=== PATIENT | male | born 1985 | race Caucasian/White ===

== ENCOUNTER 2024-03-11 01:56 | Day surgery (SDC) | payer BC, SELFPAY ==
[2024-02-28 15:02] VITALS: BMI 31.8
--- NOTE | 2024-02-28 15:09 | PC.NURSE ---
Report to the Outpatient Waiting Room, entrance under the green pavilion located off [facility], at time _1000_ on date _[id number]_. Planned Procedure Time: _1200_. Time changes happen often and if your time is changed the preop area will call you the afternoon before. - You and your visitor will be asked to self-screen and do not enter if you have any COVID symptoms. - A mask is optional within the hospital at this time. Patients may have clear liquids (water, carbonated beverages, clear teas, apple juice) until 3 hours prior to surgery with a maximum of 20 ounces. - No food from midnight until time of surgery Take the following medications with a SIP of water the morning of surgery: ___None DO NOT STOP ANY OF YOUR OTHER PRESCRIPTION MEDICATIONS PRIOR TO SURGERY ?EXCEPT THE FOLLOWING Medications to discontinue per physician ____None Date to take last dose Please no make-up, nail lithuanian, hairspray, perfume, deodorant, or body powder the day of surgery. No jewelry (including any body piercings) or valuables the day of surgery, leave them at home. Please take a shower or bath the night before, or the morning of, surgery with an antibacterial soap. Wear comfortable, loose fitting clothing. - Jewelry must be removed prior to entering the operating room. Rings and piercings that are not removed may be cut off. - The hospital will not accept responsibility for valuables. - Please leave all valuables, including medications, at home the day of surgery. If you are going home after surgery, a licensed combine driver must drive you home. - NO public transportation without another adult if you receive anesthesia. - We recommend that an adult stay with you for 24 hours following discharge. - We also recommend that you do not drive, make important decision, drink alcoholic beverages, or take any drugs that were not prescribed by your health care provider for at least 24 hours after your discharge time. Follow any additional instructions given to you from your surgeon. If you or anyone in your household have experienced Covid symptoms in the past week, please notify your surgeon or the nurse liaison at the phone number below for possible testing. Telephone instructions given to _Cristian__and asked if any additional questions and then verbalized understanding. Patient advised to call surgeon office or pre surgery nurse liaison [phone] if any additional questions.
[2024-03-11] VITALS (9 sets, daily range): BP systolic 117–138; BP diastolic 57–82; PULSE 49–80; RESP 14–16; TEMP 36.9; O2SAT 93–100
[2024-03-11] MEDS: ACETAMINOPHEN 500 MG TABLET 1000 MG PO (10:35)
[2024-03-11] MEDS: LACTATED RINGERS 1,000 ML 30 ML IV CONT ×2 (10:35→13:37)
[2024-03-11] MEDS: KETOROLAC 15 MG/ML VIAL (*BKC) IV PUSH (10:35)
--- NOTE | 2024-03-11 11:23 | WPDANESEPPF ---
Anes - Initial Pre Proc Eval Procedure: Operation Date: 03/11/24 12:00 Proposed Procedures p Open Umbilical Hernia Repair, Possible Mesh - Carmina Oliveros MD Date/Time: 03/11/24 11:23 Surgeon: Carmina Oliveros MD Pre Op Diagnosis: 2 cm umbilical hernia Patient Data Age: 38 Gender: M Height: 1.75 m Weight: 99.7 kg Last Vital Signs Temp 98.5 F 03/11/24 10:35 Pulse 62 03/11/24 10:35 Resp 14 03/11/24 10:35 BP 122/82 03/11/24 10:35 Pulse Ox 99 03/11/24 10:35 O2 Del Method Room Air 03/11/24 10:35 Allergies Allergy/AdvReac Type Severity Reaction Status Date / Time amoxicillin Allergy Unknown Verified 03/11/24 10:45 Home Medications Medication Instructions Recorded Confirmed Type levocetirizine 5 mg tablet (Xyzal) 5 mg PO DAILY 02/20/24 02/28/24 History Patient hx anesthesia problems: none Family hx anesthesia problems: none Results Review: All pre-operative results and documents have been reviewed as part of the pre-operative evaluation. [facility] Surgical History Surgical History H/O hernia repair History of ankle surgery Hx of hand surgery S/P laparoscopic appendectomy Family History Family History Other Acute myocardial infarction Heart disease Social History Social History Smoking status: Never smoker Alcohol intake: current Substance use: never Do You Feel Safe in your Home?: Yes Lack of Transportation: No Lack of Food: Never True Current Housing: I Have Housing Concerned About Future Housing: No Difficulty Paying Gas/Electric Bills: No Difficulty Paying for Meds: No Currently Unemployed: No Living arrangements: with family Occupation/Education: occupation Gender identity (if verbalized by the patient): Male Sexual Orientation (if Verbalized by the Patient): Straight or Heterosexual Spiritual care concerns: No Anes - Eval Final PreProcedure Day of Procedure 03/11/24 11:23 Patient weight: overweight Heart: regular rate and rhythm Lungs: clear to auscultation Airway: Mallampati scale class II Neurological: alert and oriented Last oral intake: >/= 8 hours ASA classification: II Emergent: no Anesthetic plan: proceed Anesthesia type and monitoring: general ETT and standard monitoring Results Review: All pre-operative results and documents have been reviewed as part of the pre-operative evaluation. OMER on CPAP, mild per pt. Pt can walk 1 mile, no cp or sob. Informed Consent: The patient's anesthetic plan and its attendant risks and benefits were discussed with the patient/family/POA. Questions were solicited and answers provided to the satisfaction of the patient/family/POA.
--- NOTE | 2024-03-11 12:02 | WPDHPUPDATE1 ---
History and Physical Update Update Date/Time: 03/11/24 12:02 History and Physical has been reviewed, including an updated exam of the patient. There are NO changes in the patient's condition. Risks, benefits, and alternatives have been discussed and questions answered. Patient agrees to proceed with procedure.
[2024-03-11] MEDS: BUPIVACAINE/EPINEPHRINE 0.5% 10 ML VIAL 30 ML INFILTRATE (12:09)
[2024-03-11] MEDS: ceFAZolin 2 GM/D5W 50 ML 2 GM/50 ML BAG IVPB (12:09)
--- NOTE | 2024-03-11 13:03 | W.PM.PROC2 ---
Procedure Note - Detailed Date of Procedure 03/11/24 Pre-op Diagnosis umbilical hernia 2 cm defect Post-op Diagnosis Same Procedure Performed repair of umbilical hernia with mesh Surgeon Carmina Oliveros MD Anesthesia General and Local Indications 38 y/o M c 2 cm umbilical hernia Findings umbilical hernia c omentum and adjacent loop of SB Description of Procedure The patient was taken to the operating room placed in the supine position. After adequate induction of general anesthesia, the patient was prepped and draped in the normal sterile fashion. A time-out was then done to verify the patient's identity, as well as the procedure being performed. I began by localizing the area around the umbilicus. I then made a curvilinear incision in the infraumbilical fold. This was taken down to level fascia. I then was able to bluntly dissect around the umbilicus. I then carefully dissected the umbilicus off the underlying fascia and hernia sac. I then noted a small defect with some protruding omentum and an adjacent loop of small intestine. I was able to mobilize the incarcerated tissue and reduce it back into the abdominal cavity. This left an approximately 2 cm defect. I then placed a 4.6 cm round piece of ventralex mesh in the underlay position. This was noted to have good, wide local coverage of the defect. I then closed this defect primarily with interrupted 0 Ethibond suture over the underlay mesh repair. I then reapproximated the umbilicus to the fascia with a 3 0 Vicryl U-stitch. The subcutaneous tissue was then closed with 3 0 Vicryl suture. The skin was closed with 4 0 Monocryl subcuticular suture. Dermabond was then placed on the wound. The patient tolerated the procedure well was extubated in the operating room postop. He will be transferred to the recovery room in stable condition. Implants 4.6 cm ventralex mesh in underlay position Estimated Blood Loss 5 Drains No Packing No Pathology None sent Complications No immediate complications Condition Stable Disposition PACU [facility] Billing Surgery - Charge Forward: Surgery Billing
[2024-03-11] MEDS: fentaNYL CITRATE INJ (*CRX) 100 MCG/2 ML VIAL 25 MCG IV PUSH ×2 (13:26→13:29)
[2024-03-11] MEDS: oxyCODONE HCL (*CRX) 5 MG TAB IR PO (14:17)
== END 2024-03-11 15:06 | disposition home or self-care (01) ==
PROVIDERS: PCP Family Medicine; Visit Provider Surgery
PROC: (CPT 49592; principal; 2024-03-11 12:00)
DX: K42.0 Umbilical hernia with obstruction, without gangrene (principal)
CPT/HCPCS: 49592; A9270; C1781; J0690; J1100; J1885; J2250; J2405; J2704; J3010; J7120

== ENCOUNTER 2024-03-31 20:14 | Emergency (ER) | payer BC, SELFPAY ==
--- NOTE | ~2024-03-31 | CT_ITS ---
EXAMINATION: CT abdomen pelvis w con DATE: 03/31/2024 21:20 INDICATION: post op infection TECHNIQUE: Computed tomography (CT) of the abdomen and pelvis was performed with 100 mL Omnipaque-350 intravenous contrast. Automated exposure control and iterative reconstruction technique were employe d. The dose-length product was 710.63 mGy-cm. COMPARISON: None. FINDINGS: Lower thorax: Unremarkable Liver: Normal. Biliary/Gallbladder: Gallbladder is normal. No bile duct dilation. Pancreas: No mass or duct dilation. Spleen: Normal. Adrenals:No mass. Kidneys: Simple right midpole cyst. Punctate nonobstructing right renal calcifications. GI tract: No small or large bowel dilation. Status post appendectomy. Mesentery/Peritoneum: No ascites, mass, or free air. Retroperitoneum: No mass. Pelvis: Pelvic organs are within normal limits. Soft Tissues: 4.4 x 6.1 x 4.8 cm rim-enhancing fluid collection in the subcutaneous fat surrounding t he umbilicus, with small internal gas bubbles and mild surrounding inflammatory change. The abscess l ies along the anterior surface of the abdominal wall, with adjacent inflammatory and postsurgical татьяна nges but no definite intraperitoneal extension. Small uncomplicated bilateral fat-containing inguinal hernias. Bones: No acute osseous finding. IMPRESSION: 6.1 cm periumbilical subcutaneous abscess. No other acute abdominopelvic process detected. Reviewed, dictated and finalized at location K.
[2024-03-31 20:15] VITALS: BP 138/75; PULSE 78; RESP 18; TEMP 36.6; O2SAT 99
--- NOTE | 2024-03-31 20:25 | ED.WOUNDLAC ---
HPI - Wound/Laceration General Chief Complaint: Wound/Laceration Stated Complaint: surgical site infection Time Seen by Provider: 03/31/24 20:25 History of Present Illness HPI narrative: Patient is a 38 year old male with history of recent umbilical hernia repair with mesh on 03/11/24 here with pain, redness and drainage from his incision site. Patient notes that he had been healing well after surgery, saw his surgeon, Dr. Oliveros on 03/26/24 and had been healing well at that time. The next day he began noting some redness around his incision as well as brownish yellow drainage from the incision. Given proximity to this hospital, he presented to an outside ED on 03/27/24 due to persistent drainage from the wound. They started him on Bactrim which he has taken for the last 4 days without improvement. He notes loss of appetite and a headache over the last couple of day. He has not contacted his surgeon's office, planned to call them tomorrow. Last PO intake was around 3 PM today. Related Data Allergies Allergy/AdvReac Type Severity Reaction Status Date / Time amoxicillin Allergy Unknown Verified 03/26/24 13:17 Review of Systems Review of Systems: All systems reviewed & are unremarkable except as noted in HPI and below PMFSH Surgical History Surgical History (Updated 03/26/24 @ 13:19 by Celi Rivera) H/O hernia repair Repair of umbilical hernia with mesh by Dr. Oliveros on 03/11. History of ankle surgery Hx of hand surgery S/P laparoscopic appendectomy Family History Family History Other Acute myocardial infarction Heart disease Social History Social History Smoking status: Never smoker Alcohol intake: current Substance use: never Do You Feel Safe in your Home?: Yes Lack of Transportation: No Lack of Food: Never True Current Housing: I Have Housing Concerned About Future Housing: No Difficulty Paying Gas/Electric Bills: No Difficulty Paying for Meds: No Currently Unemployed: No Living arrangements: with family Occupation/Education: occupation Gender identity (if verbalized by the patient): Male Sexual Orientation (if Verbalized by the Patient): Straight or Heterosexual Spiritual care concerns: No Exam Narrative: GENERAL: Well-appearing, well-nourished, and in no acute distress. HEAD: Normocephalic, atraumatic. EYES: PERRLA and EOMI. ENT: Nares clear. Mucous membranes moist. NECK: Supple. CHEST: Clear to auscultation. No respiratory distress. HEART: Regular rate and rhythm. Normal peripheral pulses. ABDOMEN: Soft, area of 3-4 cm of erythema surrounding his infraumbilical surgical incision. Warm to touch and tender, he has yellow liquid discharge without obvious purulence. EXTREMITIES: Normal range of motion. No edema. SKIN: Warm, dry, no rash. NEURO: No focal deficits. Alert and oriented x3. PSYCH: Normal mood and affect. Course Course Emergency Course: Chart review performed. Patient here with warmth, pain, drainage from surgical site. Triage vitals normal. He appears to have had an umbilical hernia with mesh on 03/11/[address] Oliveros, had a follow up visit on 03/26/24 where he was reportedly doing well. Patient seen evaluated, nontoxic appearing, alert, oriented. Patient has a concerning exam for postoperative infection with erythema, tenderness and some discharge from the wound. Basic lab work ordered. Will do contact General surgery regarding imaging and disposition. Patient's general surgeon is on-call today, Dr. Oliveros. They have been paged. Patient advised to remain NPO until discussion with general surgery. Patient agreeable to workup and plan. Lab work reassuring. CT scan shows a 6 cm fluid collection. Discussed all results with patient's surgeon, Dr. Oliveros. Patient clinically well appearing and has had reassuring workup. Advises to continue bactrim, add on keflex
[2024-03-31 20:49] LABS: Basophils Percent Auto 0.5 % (0.2-1.2); Eosinophils Absolute Auto 0.4 K/mm3 (0-0.3); Eosinophils Percent Auto 4.7 % (0-4.4); Hematocrit 42.1 % (42.0-52.0); Hemoglobin 14.9 g/dL (14.0-18.0); Immature Granulocyte Absolute 0.02 K/mm3 (0.00-0.031); Immature Granulocyte Percent A 0.3 % (0-0.5); Lymphocytes Absolute Auto 1.78 K/mm3 (0.9-3.2); Lymphocytes Percent Auto 23.1 % (18.3-44.2); Mean Corpuscular HGB Conc 35.4 g/dl (32-36); Mean Corpuscular Hemoglobin 31.8 pg (26-34); Mean Corpuscular Volume 89.8 fl (80-100); Mean Platelet Volume 8.1 fl (7.4-10.4); Monocytes Absolute Auto 0.6 K/mm3 (0.1-0.6); Monocytes Percent Auto 8.3 % (2.6-8.5); Neutrophils Absolute Auto 4.9 K/mm3 (1.3-6.7); Neutrophils Percent Auto 63.1 % (45.5-73.1); Platelet Count Result 209 k/mm3 (150-375); Red Blood Count 4.69 M/mm3 (4.6-6.20); Red Cell Distribution Width 11.6 % (11.5-14.5); White Blood Count 7.7 K/mm3 (4.5-10.0)
[2024-03-31] MEDS: MORPHINE SULFATE (*CRX) 4 MG/ML INJ IV PUSH (20:59)
[2024-03-31] MEDS: ONDANSETRON INJ 4 MG/2 ML VIAL IV PUSH (20:59)
[2024-03-31 21:02] VITALS: BP 114/78; PULSE 78; RESP 16; O2SAT 96
[2024-03-31 21:02] LABS: Alanine Aminotransferase 32 U/L (6-50); Albumin Level 4.6 g/dL (3.5-5.1); Alkaline Phosphatase 70 U/L (38-126); Anion Gap 11 mmol/L (4-12); Aspartate Amino Transferase 28 U/L (17-59); Bilirubin,Total 0.4 mg/dL (0.2-1.3); Blood Urea Nitrogen 21 mg/dL (9-20); CRP 1.1 mg/dL (<1.0); Calcium 8.9 mg/dL (8.4-10.2); Carbon Dioxide 28 mmol/L (22-30); Chloride 99 mmol/L (98-107); Estimated CRCL calculation 87 ml/min; Estimated Glomerular Filt Rate > 60; Glucose 97 mg/dL (65-110); Potassium 4.2 mmol/L (3.4-5.0); Sodium 138 mmol/L (137-145)
[2024-03-31 21:10] LABS: Lactic Acid Reflex < 0.5 mmol/L (0.7-2.0)
[2024-03-31] MEDS: CEPHALEXIN 500 MG CAPSULE PO (22:13)
[2024-03-31 22:28] LABS: Influenza A QL RT-PCR Negative (Negative); Influenza B QL RT-PCR Negative (Negative); RSV RNA, RT-PCR Negative (Negative); SARS-CoV-2 RNA PCR Negative (Negative)
== END 2024-03-31 22:20 | disposition home or self-care (01) ==
PROVIDERS: Emergency Provider Student in an Organized Health Care Education/Training Program; PCP Family Medicine
DX: L76.34 Postprocedural seroma of skin and subcutaneous tissue following other procedure (principal); T81.41XA Infection following a procedure, superficial incisional surgical site, initial encounter; L02.211 Cutaneous abscess of abdominal wall; Z20.822 Contact with and (suspected) exposure to COVID-19; Y83.8 Other surgical procedures as the cause of abnormal reaction of the patient, or of later complication, without mention of misadventure at the time of the procedure
CPT/HCPCS: 36415; 74177; 80053; 83605; 85025; 86140; 87637; 96374; 96375; 99284; A9270; J2270; J2405; Q9967